=== PATIENT | male | born 1955 | race Caucasian/White ===

== ENCOUNTER → 2021-03-22 | Outpatient (CLI) | payer BC ==
[~2021-03-22] MED LIST: ACHD5005 PO; ASP325T NG; ATOR40TA PO; CARV12.53 PO; CLD600T PO; CLOP75TA PO; EXEN2VIA SQ; GLIM2TAB PO; GLIM4TAB PO; HYDR-1231 PO; ISM60TCR PO; METF-380 PO; METFORMIN PO; MTF500T PO; MTP50T PO; NAPR-243 PO; NTR.4SL SL; OXYC1TAB87 PO; RAMI1.25 PO; RAMI2.5C PO; RANEXA PO
== END ==
LOC: WOUNDCARE 13:13
PROVIDERS: ATTEND Surgery
DX: L22 Diaper dermatitis (principal); L89.313 Pressure ulcer of right buttock, stage 3
CPT/HCPCS: A6212; G0463; 99202

== ENCOUNTER → 2021-03-29 | Outpatient (CLI) | payer BC | LOC: WOUNDCARE 08:40 | PROVIDERS: ATTEND Surgery | DX: L22 Diaper dermatitis (principal); L89.313 Pressure ulcer of right buttock, stage 3 | CPT/HCPCS: 99212 ==